=== PATIENT | female | born 1980 | race Caucasian/White ===

== ENCOUNTER 2022-08-08 15:29 | Outpatient (CLI) | payer BC, SELFPAY ==
[2022-08-10 21:13] LABS: Free T3 2.9 pg/mL (2.5-4.3)
== END 2022-08-08 15:30 | disposition home or self-care (01) ==
PROVIDERS: PCP Internal Medicine; Visit Provider Internal Medicine
DX: E03.2 Hypothyroidism due to medicaments and other exogenous substances (principal)
CPT/HCPCS: 84439; 84443; 84481

== ENCOUNTER 2022-09-21 12:08 | Outpatient (CLI) | payer BC, SELFPAY | END 2022-09-21 12:09 | disposition home or self-care (01) | LOC: NFLDREF 12:09 | PROVIDERS: PCP Internal Medicine; Visit Provider Internal Medicine | DX: Z00.00 Encounter for general adult medical examination without abnormal findings (principal); Z13.1 Encounter for screening for diabetes mellitus; Z13.6 Encounter for screening for cardiovascular disorders; E03.2 Hypothyroidism due to medicaments and other exogenous substances | CPT/HCPCS: 80061; 82947 ==

== ENCOUNTER 2023-01-26 13:43 | Outpatient (CLI) | payer BC, SELFPAY | END 2023-01-26 13:44 | disposition home or self-care (01) | PROVIDERS: PCP Internal Medicine; Visit Provider Obstetrics & Gynecology | DX: Z01.419 Encounter for gynecological examination (general) (routine) without abnormal findings (principal); R53.83 Other fatigue; N95.9 Unspecified menopausal and perimenopausal disorder; Z12.4 Encounter for screening for malignant neoplasm of cervix | CPT/HCPCS: 82306; 83001 ==

== ENCOUNTER 2023-09-25 16:10 | Outpatient (CLI) | payer BC, SELFPAY | END 2023-09-25 16:11 | disposition home or self-care (01) | PROVIDERS: PCP Internal Medicine; Visit Provider Internal Medicine | DX: E03.2 Hypothyroidism due to medicaments and other exogenous substances (principal) | CPT/HCPCS: 84439; 84443; 84481 ==

== ENCOUNTER 2023-10-04 15:40 | Outpatient (CLI) | payer BC, SELFPAY ==
--- NOTE | 2023-10-04 16:00 | US_ITS ---
Patient: LOUIE KAHN Facility:?[facility] Patient ID:?[id number] Site Patient ID:?[id number]. Site :?[id number] Study:?US-Extremity Right LEV-10/04/2023 4:18:26 PM Ordering Physician:NACHO KHAN Final Report: INDICATION: LOCALIZED EDEMA COMPARISON: None. TECHNIQUE: A compression venous ultrasound exam was performed of the right lower extremity using de la rosa-scale imaging, color Doppler and spectral Doppler analysis. FINDINGS: Sonographic imaging of the right lower extremity demonstrates normal compressibility and color Doppler venous blood flow within the common femoral vein, deep femoral vein, and the proximal greater saphenous vein. Within the thigh, the femoral vein is patent and compressible. At a lower level, the popliteal and posterior tibial veins also show normal compressibility and color Doppler venous blood flow. Limited imaging of the contralateral groin demonstrates a normal spectral waveform and color Doppler venous blood flow within the left common femoral vein. IMPRESSION: Normal venous ultrasound exam. No evidence of deep vein thrombosis within the right lower extremity. Dictated by Eb Montiel MD @ 10/05/2023 11:33:06 AM Signed by:?Eb Montiel MD @10/05/2023 11:33:06 AM (Electronic Signature)
== END 2023-10-04 15:41 | disposition home or self-care (01) ==
LOC: US 15:41
PROVIDERS: PCP Internal Medicine; Visit Provider Internal Medicine
DX: R60.0 Localized edema (principal)
CPT/HCPCS: 93971

== ENCOUNTER 2024-08-01 13:19 | Outpatient (CLI) | payer BC, SELFPAY | END 2024-08-01 13:20 | disposition home or self-care (01) | PROVIDERS: PCP Internal Medicine; Visit Provider Obstetrics & Gynecology | DX: E78.00 Pure hypercholesterolemia, unspecified (principal); E03.2 Hypothyroidism due to medicaments and other exogenous substances; R61 Generalized hyperhidrosis; F41.9 Anxiety disorder, unspecified | CPT/HCPCS: 80061; 82306; 83001; 84443; 84481; 86140 ==

== ENCOUNTER 2024-09-22 16:16 | Outpatient (CLI) | payer BC, SELFPAY | END 2024-09-22 16:17 | disposition home or self-care (01) | PROVIDERS: PCP Internal Medicine; Visit Provider Internal Medicine | DX: E03.2 Hypothyroidism due to medicaments and other exogenous substances (principal); M79.661 Pain in right lower leg; Z92.3 Personal history of irradiation | CPT/HCPCS: 80053; 84439; 86431 ==

== ENCOUNTER 2024-10-07 10:01 | Outpatient (CLI) | payer BC, SELFPAY ==
--- NOTE | 2024-10-07 10:15 | CRLHL7_ITS ---
For Patients: As a result of the Century Cures Act, medical imaging exams and procedure reports are released immediately into your electronic medical record. You may view this report before your referring provider. If you have questions, please contact your health care provider. INDICATION: Right upper quadrant abdomen pain TECHNIQUE: Ultrasound abdomen limited. Sonographic images of the right upper quadrant were obtained using de la rosa-scale, color and spectral doppler images. COMPARISON: None FINDINGS: Liver: Normal in size and echotexture. No masses. No intrahepatic biliary dilatation. Gallbladder: No stones or sludge. 5 mm polyp in the body. Normal wall thickness. No pericholecystic fluid. Common bile duct: 4 mm. Pancreas: Normal. Right kidney: Normal in size. Normal echotexture and cortex. No suspicious masses, stones, or hydronephrosis. Vasculature: Normal flow direction in the main portal vein. IMPRESSION: 1. 5 mm gallbladder polyp. Recommend yearly ultrasound surveillance. 2. No cause for gallbladder pain identified. Dictated by Gurpreet Andrea MD @ 10/08/2024 9:49:49 AM (Electronically Signed)
== END 2024-10-07 10:02 | disposition home or self-care (01) ==
LOC: US 10:02
PROVIDERS: PCP Internal Medicine; Visit Provider Internal Medicine
DX: R10.11 Right upper quadrant pain (principal); K82.4 Cholesterolosis of gallbladder
CPT/HCPCS: 76705

== ENCOUNTER 2024-10-23 15:30 | Outpatient (CLI) | payer BC, SELFPAY | END 2024-10-23 15:31 | disposition home or self-care (01) | LOC: NFLDREF 10-27 23:40 | PROVIDERS: PCP Internal Medicine; Referring Provider Internal Medicine; Visit Provider Obstetrics & Gynecology | DX: R61 Generalized hyperhidrosis (principal) | CPT/HCPCS: 82670 ==

== ENCOUNTER 2025-06-02 15:03 | Outpatient (CLI) | payer BC, SELFPAY | END 2025-06-02 15:04 | disposition home or self-care (01) | LOC: NFLDREF 06-06 18:00 | PROVIDERS: PCP Internal Medicine; Referring Provider Internal Medicine; Visit Provider Internal Medicine | DX: Z82.49 Family history of ischemic heart disease and other diseases of the circulatory system (principal) | CPT/HCPCS: 83695 ==